=== PATIENT | female | born 1935 | race African-American/Black ===

== ENCOUNTER 2017-02-18 04:22 | Inpatient (IN) | payer MEDICARE ==
[2017-02-18] VITALS (26 sets, daily range): BP systolic 101–226; BP diastolic 48–115; PULSE 55–92; RESP 12–30; TEMP 97.7–102; O2SAT 66–100
[~2017-02-18] VITALS: Ht 165.1 cm; Wt 108.0 kg
[2017-02-18 04:40] LABS: AUTOMATED NEUTROPHIL # 10.9 TH/MM3 (1.8-7.7); BASOPHIL # 0.1 TH/MM3 (0-0.2); BASOPHIL % 0.6 % (0.0-2.0); EOSINOPHIL # 0.1 TH/MM3 (0-0.4); HEMATOCRIT 41.9 % (35.0-46.0); HEMO FLAGS DIFF FINAL; LYMPH % 13.5 % (9.0-44.0); LYMPHOCYTE # 1.8 TH/MM3 (1.0-4.8); MEAN CELL VOLUME 94.6 FL (80.0-100.0); MEAN CORPUSCULAR HEMOGLOBIN 31.5 PG (27.0-34.0); MEAN CORPUSCULAR HGB CONC 33.4 % (32.0-36.0); MONO % 4.2 % (0.0-8.0); NEUT % 80.7 % (16.0-70.0); PLATELET COUNT 167 TH/MM3 (150-450); RED BLOOD COUNT 4.43 MIL/MM3 (4.00-5.30); RED CELL DISTRIBUTION WIDTH 13.6 % (11.6-17.2); WHITE BLOOD COUNT 13.5 TH/MM3 (4.0-11.0)
[2017-02-18] MEDS ORDERED: ETOMIDATE 20 MG/10 ML VIAL ONE (04:42)
[2017-02-18] MEDS ORDERED: ONDANSETRON HCL 4 MG/2 ML VIAL IV PRN (04:45)
[2017-02-18] MEDS ORDERED: POTASSIUM CHLOR 40 MEQ PREMIX 100 ML IV PRN ×2 (04:45)
[2017-02-18] MEDS ORDERED: MISCELLANEOUS NURSING INFORMATION XX SCH (04:45)
[2017-02-18] MEDS ORDERED: MAGNESIUM OXIDE 400 MG TAB PO PRN (04:45)
[2017-02-18] MEDS ORDERED: POTASSIUM PHOSPHATE MONOBASIC 500 MG TAB PO/TUBE PRN (04:45)
[2017-02-18] MEDS ORDERED: CHLORHEXIDINE GLUCONATE 2 % 1 PACK (2 CLOTHS) TOP PRN (04:45)
[2017-02-18] MEDS ORDERED: MAGNESIUM SULFATE INJ 4 GM in SODIUM CHLORIDE 0.9% INJ 92 ML IV PRN (04:45)
[2017-02-18] MEDS ORDERED: POTASSIUM PHOSPHATE INJ 30 MMOL in SODIUM CHLOR 0.9% 250 ML INJ 250 ML IV PRN (04:45)
[2017-02-18] MEDS ORDERED: DEXTROSE 50% IN WATER 50 ML VIAL(D50) IV PUSH PRN (04:45)
[2017-02-18] MEDS ORDERED: cefTRIAXone INJ 1,000 MG in SODIUM CHLORIDE 0.9% INJ 100 ML IV ONE (04:45)
[2017-02-18] MEDS ORDERED: AZITHROMYCIN INJ 500 MG in SODIUM CHLOR 0.9% 250 ML INJ 250 ML IV ONE (04:45)
[2017-02-18] MEDS ORDERED: SODIUM PHOSPHATE INJ 30 MMOL in SODIUM CHLOR 0.9% 250 ML INJ 240 ML IV PRN (04:45)
[2017-02-18] MEDS ORDERED: ACETAMINOPHEN 325 MG TAB PO PRN (04:45)
[2017-02-18] MEDS ORDERED: RESP: ALBUTEROL 2.5 MG/IPRATROPIUM 0.5 MG NEB (PRN) INH (04:45)
[2017-02-18] MEDS ORDERED: POTASSIUM PHOSPHATE MONOBASIC 500 MG TAB PO PRN (04:45)
[2017-02-18] MEDS ORDERED: MAGNESIUM SULFATE INJ 2 GM in SODIUM CHLORIDE 0.9% INJ 96 ML IV PRN (04:45)
[2017-02-18] MEDS ORDERED: POTASSIUM CHLOR 20 MEQ PREMIX 100 ML IV PRN ×2 (04:45)
[2017-02-18 04:51] LABS: APTT (PATIENT) 26.5 SEC (24.3-30.1); PROTHROMBIN TIME - PATIENT 10.9 SEC (9.8-11.6)
[2017-02-18 04:52] LABS: BLOOD GAS BASE EXCESS -0.2 mmol/L (-2-2); BLOOD GAS HCO3 25 mmol/L (22-26); BLOOD GAS METHEMOGLOBIN 0.8 % (0-2); BLOOD GAS O2 HGB SATURATION 86 % (90-100); BLOOD GAS OXYGEN CONTENT 16.8 Vol % (12.0-20.0); BLOOD GAS PCO2 45 mmHg (38-42); BLOOD GAS PO2 58 mmHG (61-120); BLOOD GAS TOTAL HGB 13.9 G/DL (12.0-16.0); CRITICAL VALUE YES; DRAW SITE RT RADIAL; FIO2 100 %; NUMBER OF ARTERIAL PUNCTURES 1; OXYGEN DEVICE NPPV; STAT YES; TEMP CORR TO 98.6; ULNAR PULSE PRESENT; VENT SETTINGS IPAP12/EPAP5
--- NOTE | 2017-02-18 04:52 | PD ---
HPI Chief Complaint: Respiratory Distress Time Seen by Provider: 04:26 Travel History International Travel<30 days: No Contact w/Intl Traveler<30days: No Traveled to known affect area: No History of Present Illness HPI 81-year-old female with history of diabetes, brought in by ambulance emergently for respiratory distress. The patient is from [place] and is visiting here with her on their 60th anniversary. She became short of breath about 1-2 hours before calling 911. She denies history of cardiopulmonary disease. Medics noticed the patient to be in moderate respiratory distress with coarse breath sounds bilaterally. They started her on 2 L nasal cannula and transported her to the emergency department. Upon arrival to the emergency department O2 saturation was 66% on room air. Saturation did not change with 2 L nasal cannula. She was placed on 100% nonrebreather and saturation improved slightly to 73%. She was then placed on BiPAP at 100% FiO2 with improvement of sets to 91%. Stat chest x-ray was obtained and shows a large right lower lobe consolidation. Patient denies chest pain. She is notably tachypneic. I discussed intubation with her and she is amenable if need be. Shortly after the patient arrived to the emergency department, the patient's was at the patient's bedside. I made him aware of how critical it patient's status is and likely course for intubation. [facility] Social History Tobacco Use: No Allergies-Medications (Allergen,Severity, Reaction): Coded Allergies: Codeine (Verified Allergy, Unknown, 02/18/17) Reported Meds & Prescriptions Reported Meds & Active Scripts Active Active Prescriptions or Reported Medications Unobtainable Review of Systems Except as stated in HPI: all other systems reviewed are Neg Physical Exam Narrative GENERAL: Well-developed, well-nourished, overweight, severe respiratory distress , speaking 1-2 words at a time. SKIN: Focused skin assessment warm/dry. HEAD: Atraumatic. Normocephalic. EYES: Pupils equal and round. No scleral icterus. No injection or drainage. ENT: Mucous membranes pink and moist. NECK: Trachea midline. No JVD. CARDIOVASCULAR: Tachycardic, regular. RESPIRATORY: Severe respiratory distress. Accessory muscle use. Speaking 1-2 words at a time. Coarse breath sounds bilaterally with poor air movement bilaterally. GASTROINTESTINAL: Abdomen soft, non-tender, nondistended. MUSCULOSKELETAL: No obvious deformities. No clubbing. No cyanosis. Mild bilateral lower extremity edema. NEUROLOGICAL: Awake and alert. No obvious cranial nerve deficits. Motor grossly within normal limits. Normal speech. PSYCHIATRIC: Appropriate mood and affect; insight and judgment normal. Data Data Last Documented VS Vital Signs Date Time Temp Pulse Resp B/P Pulse Ox O2 Delivery O2 Flow Rate FiO2 02/18/17 05:10 92 16 226/115 96 Ventilator 100 02/18/17 05:00 15 02/18/17 04:24 100.8 Orders Complete Blood Count With Diff (02/18/17 04:26) Comprehensive Metabolic Panel (02/18/17 04:26) Prothrombin Time / Inr (Pt) (02/18/17 04:26) Act Partial Throm Time (Ptt) (02/18/17 04:26) Lactic Acid Sepsis Protocol (02/18/17 04:26) Ckmb (Isoenzyme) Profile (02/18/17 04:26) Troponin I (02/18/17 04:26) Urinalysis - C+S If Indicated (02/18/17 04:26) Blood Culture (02/18/17 04:26) Chest, Single Ap (02/18/17 04:26) Blood Glucose (02/18/17 04:26) Ecg Monitoring (02/18/17 04:26) Iv Access Insert/Monitor (02/18/17 04:26) Oximetry (02/18/17 04:26) Oxygen Administration (02/18/17 04:26) B-Type Natriuretic Peptide (02/18/17 04:26) Arterial Blood Gas (Abg) (02/18/17 04:26) Resp Bipap / Cpap Non Invas Vt (02/18/17 04:26) Etomidate Inj (Amidate Inj) (02/18/17 04:42) Ceftriaxone Inj (Rocephin Inj) (02/18/17 04:45) Azithromycin Inj (Zithromax Inj) (02/18/17 04:45) Cbc No Diff, Includes Plts (02/19/17 05:00) Cbc No Diff, Includes Plts (02/20/17 05:00) Cbc No Diff, Includes Plts (02/21/17 05:00) Cbc No Diff, Includes Plts (02/22/17 05:00) Cbc No Diff, Includes Plts (02/23/17 05:00) Cbc No Diff, Includes Plts (02/24/17 05:00) Cbc No Diff, Includes Plts (02/25/17 05:00) Basic Metabolic Panel (Bmp) (02/19/17 05:00) Basic Metabolic Panel (Bmp) (02/20/17 05:00) Basic Metabolic Panel (Bmp) (02/21/17 05:00) Basic Metabolic Panel (Bmp) (02/22/17 05:00) Basic Metabolic Panel (Bmp) (02/23/17 05:00) Basic Metabolic Panel (Bmp) (02/24/17 05:00) Basic Metabolic Panel (Bmp) (02/25/17 05:00) Restraints Non-Violent SABINE.Q3H (02/18/17 04:41) Neurological Rass Scale SABINE.Q2H (02/18/17 04:41) Propofol 1000 Mg/100 Ml Inj (Diprivan 10 (02/18/17 04:45) RASS (02/18/17 04:41) ^ Infusion (02/18/17 04:41) Magnesium Oxide (Mag-Ox) (02/18/17 04:45) Magnesium Sulfate Inj (Magnesium Sulfate (02/18/17 04:45) Magnesium Sulfate Inj (Magnesium Sulfate (02/18/17 04:45) Potassium Chlor 20 Meq Premix (Kcl 20 Me (02/18/17 04:45) Potassium Chlor 20 Meq Premix (Kcl 20 Me (02/18/17 04:45) Potassium Chlor 40 Meq Premix (Kcl 40 Me (02/18/17 04:45) Potassium Chlor 40 Meq Premix (Kcl 40 Me (02/18/17 04:45) Potassium Phosphate (K-Phos) (02/18/17 04:45) Potassium Phosphate (K-Phos) (02/18/17 04:45) Potassium Phosphate Inj (Potassium Phosp (02/18/17 04:45) Sodium Phosphate Inj (Sodium Phosphate I (02/18/17 04:45) ^ Medication Admin Instruction (02/18/17 04:41) Notify Dr: Other (02/18/17 04:41) Chlorhexidine 0.12% Liq (Peridex 0.12% L (02/18/17 08:00) Resp Ventilation- Volume (02/18/17 ) Ventilator Weaning Readiness SABINE.DAILY@0800 (02/18/17 04:41) Elevate Head Of Bed (02/18/17 04:41) Inpatient Certification (02/18/17 04:41) Bedside Glucose SABINE.Q6H (02/18/17 04:41) Blood Glucose Goal (Criteria) (02/18/17 04:41) Hypoglycemia 51 - 69 Mg/Dl (02/18/17 04:41) Hypoglycemia 50 Mg/Dl Or < (02/18/17 04:41) Notify Dr: Other (02/18/17 04:41) Dextrose 50% In Lux (Vial) Inj (D50w (Vi (02/18/17 04:45) Insulin Human Reg Supp Scale (Novolin R (02/18/17 06:00) Urinary Catheter Management SABINE.Q1H (02/18/17 04:41) Chest, Single Ap (02/19/17 06:00) Albuterol-Ipratropium Neb (Duoneb Neb) (02/18/17 10:00) Albuterol-Ipratropium Neb (Duoneb Neb) (02/18/17 04:45) Arterial Blood Gas (Abg) (02/19/17 06:00) Sputum Culture And Gram Stain (02/18/17 04:41) Specimen To Be Collected PRN (02/18/17 04:41) Code Status (02/18/17 04:41) Vital Signs (Adult) SABINE.Q1H (02/18/17 04:41) Activity Bed Rest (02/18/17 04:41) Elevate Head Of Bed (02/18/17 04:41) Neuro Checks . ORDERED (02/18/17 04:41) ^ Orogastric Tube (02/18/17 04:41) Diet Npo (02/18/17 Breakfast) Sodium Chlor 0.9% 1000 Ml Inj (Ns 1000 M (02/18/17 04:41) Acetaminophen (Tylenol) (02/18/17 04:45) Famotidine Inj (Pepcid Inj) (02/18/17 09:00) Ondansetron Inj (Zofran Inj) (02/18/17 04:45) Marble Cleaner / Telemetry SABINE.Q8H (02/18/17 04:41) Heparin Inj (Heparin Inj) (02/18/17 06:00) Scd Bilateral/Knee High SABINE.BID (02/18/17 04:41) ^ Initiate Protocol (02/18/17 04:41) Instruction (02/18/17 04:41) Misc Nursing Information (02/18/17 04:45) Chlorhexidine 2% Cloth (Chlorhexidine 2% (02/19/17 04:00) Chlorhexidine 2% Cloth (Chlorhexidine 2% (02/18/17 04:45) Mrsa Pcr Surveillance (02/18/17 04:41) Docusate Sodium-Senna (Leatha-Colace) (02/18/17 09:00) Legionella Urinary Antigen (02/18/17 04:48) Pneumococcal Urinary Antigen (02/18/17 04:48) Ceftriaxone Inj (Rocephin Inj) (02/19/17 06:00) Azithromycin Inj (Zithromax Inj) (02/19/17 05:00) Acetaminophen Supp (Tylenol Supp) (02/18/17 05:15) Admit Order (Ed Use Only) (02/18/17 05:11) Labs Laboratory Tests Test 02/18/17 02/18/17 02/18/17 04:27 04:35 05:08 White Blood Count 13.5 TH/MM3 Red Blood Count 4.43 MIL/MM3 Hemoglobin 14.0 GM/DL Hematocrit 41.9 % Mean Corpuscular Volume 94.6 FL Mean Corpuscular Hemoglobin 31.5 PG Mean Corpuscular Hemoglobin 33.4 % Concent Red Cell Distribution Width 13.6 % Platelet Count 167 TH/MM3 Mean Platelet Volume 7.3 FL Neutrophils (%) (Auto) 80.7 % Lymphocytes (%) (Auto) 13.5 % Monocytes (%) (Auto) 4.2 % Eosinophils (%) (Auto) 1.0 % Basophils (%) (Auto) 0.6 % Neutrophils # (Auto) 10.9 TH/MM3 Lymphocytes # (Auto) 1.8 TH/MM3 Monocytes # (Auto) 0.6 TH/MM3 Eosinophils # (Auto) 0.1 TH/MM3 Basophils # (Auto) 0.1 TH/MM3 CBC Comment DIFF FINAL Differential Comment Prothrombin Time 10.9 SEC Prothromb Time International 1.0 RATIO Ratio Activated Partial 26.5 SEC Thromboplast Time Sodium Level 141 MEQ/L Potassium Level 3.5 MEQ/L Chloride Level 105 MEQ/L Carbon Dioxide Level 26.3 MEQ/L Anion Gap 10 MEQ/L Blood Urea Nitrogen 23 MG/DL Creatinine 1.68 MG/DL Estimat Glomerular Filtration 35 ML/MIN Rate Random Glucose 132 MG/DL Lactic Acid Level 1.5 mmol/L Calcium Level 8.7 MG/DL Total Bilirubin 1.0 MG/DL Aspartate Amino Transf 19 U/L (AST/SGOT) Alanine Aminotransferase 13 U/L (ALT/SGPT) Alkaline Phosphatase 68 U/L Total Creatine Kinase 94 U/L Troponin I LESS THAN 0.02 NG/ML B-Type Natriuretic Peptide 109 PG/ML Total Protein 7.6 GM/DL Albumin 3.5 GM/DL Blood Gas Puncture Site RT RADIAL Blood Gas Patient Temperature 98.6 Blood Gas HCO3 25 mmol/L Blood Gas Base Excess -0.2 mmol/L Blood Gas Oxygen Saturation 86 % Arterial Blood pH 7.35 Arterial Blood Partial 45 mmHg Pressure CO2 Arterial Blood Partial 58 mmHG Pressure O2 Arterial Blood Oxygen Content 16.8 Vol % Arterial Blood 1.0 % Carboxyhemoglobin Arterial Blood Methemoglobin 0.8 % Blood Gas Hemoglobin 13.9 G/DL Oxygen Delivery Device NPPV Blood Gas Ventilator Setting IPAP12/[id number] Blood Gas Inspired Oxygen 100 % Urine Color YELLOW Urine Turbidity CLEAR Urine pH 6.0 Urine Specific [place] 1.013 Urine Protein TRACE mg/dL Urine Glucose (UA) NEG mg/dL Urine Ketones NEG mg/dL Urine Occult Blood NEG Urine Nitrite NEG Urine Bilirubin NEG Urine Urobilinogen LESS THAN 2.0 MG/DL Urine Leukocyte Esterase NEG Urine RBC 5 /hpf Urine WBC LESS THAN 1 /hpf Urine Squamous Epithelial 1 /hpf Cells Microscopic Urinalysis Comment CATH-CULT NOT IND MDM Medical Decision Making Medical Screen Exam Complete: Yes Emergency Medical Condition: Yes Differential Diagnosis Pneumonia, ACS, pulmonary edema, pneumothorax, PE, Narrative Course See history of present illness. Shortly after the patient arrived to the emergency department I contacted lamp shades supervisor Dr. Joe who presented to the bedside to assist with initial management of the patient. Chest x-ray was performed shortly after the patient arrived to the emergency department and shows a large consolidation of the right lower lobe lesion with air bronchograms. Patient was written for IV azithromycin and IV Rocephin. Of the patient's O2 saturation improved with BiPAP, patient remained tachypneic with increased work of breathing. She was intubated for impending respiratory failure. Patient will be admitted to the ICU. Patient's at the bedside after intubation was performed. Critical Care Narrative Aggregate critical care time was 40 minutes. Time to perform other separately billable procedures was not included in the critical care time. My time did not include minutes spent treating any other patients simultaneously or on activities that did not directly contribute to the patient's treatment. The services I provided to this patient were to treat and/or prevent clinically significant deterioration that could result in: , permanent disability, septic shock I provided critical care services requiring my management, as noted below: Chart data review, documentation time, medication orders and management, vital sign assessments/reviewing monitor data, ordering and reviewing lab tests, ordering and interpreting/reviewing x-rays and diagnostic studies, care of the patient and discussion of the patient with the admitting physicians. Procedures Procedure Narrative Emergent intubation: The patient was put in optimal position for the procedure. Rapid sequence intubation was initiated by me using 20 milligrams of etomidate IV and 50 milligrams of rocuronium IV. The patient was intubated with a 8.0 Arabic cuffed endotracheal tube. Tube placement was confirmed by visualization of the tube and balloon passing through the cords, capnometry and subsequent chest x-ray. Breath sounds were equal and well aerated bilaterally postintubation. No breath sounds over stomach. Patient tolerated procedure well. Diagnosis Primary Impression: Sepsis Qualified Code: A41.9 - Sepsis, due to unspecified organism Additional Impressions: Pneumonia Qualified Code: J18.1 - Pneumonia of right lower lobe due to infectious organism Acute respiratory failure Qualified Code: J96.01 - Acute respiratory failure with hypoxia Admitting Information Admitting Physician Requests: Admit Scripts Unable to Obtain Active Prescriptions or Reported Meds Isaias Roque MD Feb 18, 2017 04:52
--- NOTE | 2017-02-18 04:56 | RADRPT ---
EXAM DATE/TIME: 02/18/2017 04:30 [facility] COMPARISON: No previous studies available for comparison. INDICATIONS : Shortness of breath MEDICAL HISTORY : None. SURGICAL HISTORY : None. ENCOUNTER: Initial ACUITY: 1 day PAIN SCORE: Non-responsive. LOCATION: Bilateral chest FINDINGS: There is consolidation in the right lower lobe and right upper lobe. Left lower lobe consolidation is seen. Cardiomegaly. No effusions. Osseous structures are intact. CONCLUSION: Bilateral consolidation right greater than left. Koko Ortiz MD on February 18, 2017 at 4:54 Board Certified Radiologist. This report was verified electronically.
--- NOTE | 2017-02-18 05:02 | HHI.HP ---
[facility] Service Critical Care Medicine Primary Care Physician Non-Staff Admission Diagnosis Diagnosis: Chief Complaint: shortness of breath Travel History International Travel<30 Days: No Contact w/Intl Traveler <30 Da: No Traveled to Known Affected Are: No History of Present Illness This is an 81yF with history of diabetes who is here on vacation when she experienced worsening shortness of breath and fever over last few days. she was initially with spo2 60s% on room air. She was placed on BiPAP. She has a leukocytosis and a dense RLL consolidation on CXR. She continued to decline requiring intubation and mechanical ventilation. no further history is obtainable from the patient due to her clinical condition. Review of Systems ROS Limitations: Clinical Condition, Intubated Past Family Social History Allergies: Coded Allergies: Codeine (Verified Allergy, Unknown, 02/18/17) Past Medical History Diabetes Past Surgical History unable to obtain secondary to the clinical condition of the patient Reported Medications unable to obtain secondary to the clinical condition of the patient Active Ordered Medications See MAR Family History unable to obtain secondary to the clinical condition of the patient Social History unable to obtain secondary to the clinical condition of the patient Physical Exam Vital Signs Vital Signs Date Time Temp Pulse Resp B/P Pulse Ox O2 Delivery O2 Flow Rate FiO2 02/18/17 04:32 BiPAP 02/18/17 04:28 28 73 Non-Rebreather 02/18/17 04:24 100.8 82 28 202/105 66 Physical Exam GENERAL: Elderly female in severe respiratory distress HEENT: Normocephalic. Atraumatic. Pupils equal, round, reactive, conjugate. Mucous membranes are dry NECK: Trachea is midline. There is no JVD. BiPAP in place CHEST: Labored. Tachypneic. On BiPAP 100% FiO2, SPO2 89% CARDIOVASCULAR: Tachycardic rate, regular rhythm. Sinus by telemetry ABDOMEN: Soft, nontender, nondistended. No guarding. MUSCULOSKELETAL: Pulses 2+. No peripheral edema. NEUROLOGICAL: RASS +1. In distress. Follows commands. Laboratory Laboratory Tests Test 02/18/17 04:27 White Blood Count 13.5 Red Blood Count 4.43 Hemoglobin 14.0 Hematocrit 41.9 Mean Corpuscular Volume 94.6 Mean Corpuscular Hemoglobin 31.5 Mean Corpuscular Hemoglobin 33.4 Concent Red Cell Distribution Width 13.6 Platelet Count 167 Mean Platelet Volume 7.3 Neutrophils (%) (Auto) 80.7 Lymphocytes (%) (Auto) 13.5 Monocytes (%) (Auto) 4.2 Eosinophils (%) (Auto) 1.0 Basophils (%) (Auto) 0.6 Neutrophils # (Auto) 10.9 Lymphocytes # (Auto) 1.8 Monocytes # (Auto) 0.6 Eosinophils # (Auto) 0.1 Basophils # (Auto) 0.1 CBC Comment DIFF FINAL Differential Comment Date/Time Procedure Status Source Growth 02/18/17 04:27 Aerobic Blood Culture Received Blood Peripheral Pending 02/18/17 04:27 Anaerobic Blood Culture Received Blood Peripheral Pending Result Diagram: 02/18/17 0427 Imaging CXR- 02/18: to my preliminary read, very dense RLL consolidation, possible LLL consolidation as well. Assessment and Plan Assessment and Plan Assessment: 81yF with very severe community acquired pneumonia with resultant acute hypoxic respiratory failure. very critically ill. Plan: Acute hypoxic respiratory failure -- s/p intubation -- wean fio2 for spo2 > 90% -- nebs -- hob at 30 degrees -- vent bundle Severe Community Acquired pneumonia -- No history concerning for healthcare association or pseudomonas risk factors. no chronic lung disease -- urine legionella, pneumonococcal Ag -- Rocephin and Azithro -- augustine culture Sepsis Leukocytosis -- mivf NS @ 84 cc/hr Diabetes -- SSI, q6h, med scale NPO SCDs SQH Admit to the ICU. This patient remains critically ill with one or more organ systems which are or may become a threat to life. I have spent in excess of 32 minutes discontinuously in the care and management of this patient. This time is exclusive of procedures, and includes, but is not limited to, evaluation of the patient, review of the medical record, discussions with family, consultants, nursing staff, or respiratory therapy, and documentation in the medical record. Code Status Full Code Alvaro Joe MD Feb 18, 2017 05:02
[2017-02-18] MEDS ORDERED: ACETAMINOPHEN 650 MG SUPP RECTAL ONE (05:15)
[2017-02-18] MEDS: PROPOFOL 1000 MG/100 ML INJ 100 ML IV SCH ×4 (05:21→21:16)
[2017-02-18 05:24] LABS: ALT (GPT) 13 U/L (10-53); ANION GAP 10 MEQ/L (5-15); AST (GOT) 19 U/L (15-37); BICARBONATE 26.3 MEQ/L (21.0-32.0); BLOOD UREA NITROGEN 23 MG/DL (7-18); CHLORIDE 105 MEQ/L (98-107); GLOMERULAR FILTRATION RATE 35 ML/MIN (>89); POTASSIUM 3.5 MEQ/L (3.5-5.1); SODIUM (NA) 141 MEQ/L (136-145)
[2017-02-18 05:25] LABS: BLOOD, URINE NEG (NEG); GLUCOSE,URINE NEG (NEG); KETONE, URINE NEG (NEG); NITRITE,URINE NEG (NEG); SQUAMOUS EPITHELIAL CELL URINE 1 /hpf (0-5); URINE COLOR YELLOW (YELLW/STRAW)
[2017-02-18 05:26] LABS: COMMENT (UR) CATH-CULT NOT IND; CULTURE IF INDICATED CATH CULTURE NOT IND
[2017-02-18 05:27] LABS: ALKALINE PHOSPHATASE 68 U/L (45-117)
[2017-02-18 05:40] LABS: CREATINE KINASE 94 U/L (26-192)
[2017-02-18] MEDS: INSULIN NovoLIN REGULAR SUPPLEMENTAL SCALE SQ SCH ×3 (05:46→16:48)
[2017-02-18 06:04] LABS: BLOOD GAS BASE EXCESS -0.9 mmol/L (-2-2); BLOOD GAS CARBOXYHEMOGLOBIN 0.9 % (0-4); BLOOD GAS HCO3 24 mmol/L (22-26); BLOOD GAS METHEMOGLOBIN 0.7 % (0-2); BLOOD GAS O2 HGB SATURATION 97 % (90-100); BLOOD GAS OXYGEN CONTENT 18.2 Vol % (12.0-20.0); BLOOD GAS PCO2 46 mmHg (38-42); BLOOD GAS PO2 137 mmHG (61-120); BLOOD GAS TOTAL HGB 13.2 G/DL (12.0-16.0); CRITICAL VALUE NO; FIO2 100 %; OXYGEN DEVICE VENTILATOR; TEMP CORR TO 98.6; VENT SETTINGS VAC15/500/PEEP5
[2017-02-18 06:05] LABS: DRAW SITE LT RADIAL; NUMBER OF ARTERIAL PUNCTURES 1; STAT YES; ULNAR PULSE PRESENT
[2017-02-18] MEDS: SODIUM CHLOR 0.9% 1000 ML INJ 1,000 ML IV SCH ×2 (06:16→16:46)
--- NOTE | 2017-02-18 06:18 | RADRPT ---
EXAM DATE/TIME: 02/18/2017 05:53 [facility] COMPARISON: CHEST SINGLE AP, February 18, 2017, 4:30. INDICATIONS : Post procedure. MEDICAL HISTORY : None. SURGICAL HISTORY : None. ENCOUNTER: Initial ACUITY: 1 day PAIN SCORE: Non-responsive. LOCATION: Bilateral chest FINDINGS: Endotracheal tube is present with distal tip terminating 3.4 cm above the lina. Enteric tube course s beneath the diaphragm. There is dense consolidative opacity in both lower lobes and slight improved aeration right upper lobe. CONCLUSION: Endotracheal tube as above. Koko Ortiz MD on February 18, 2017 at 6:16 Board Certified Radiologist. This report was verified electronically.
[2017-02-18] MEDS: HEPARIN SODIUM - SQ 10,000 UNITS/ML VIAL SQ SCH ×3 (06:20→21:07)
[2017-02-18] MEDS ORDERED: ETOMIDATE 20 MG/10 ML VIAL IV PUSH ONE (06:45)
[2017-02-18] MEDS ORDERED: ROCURONIUM INJ 50 MG/5 ML VIAL IV ONE (06:45)
[2017-02-18] MEDS: CHLORHEXIDINE 0.12% (ORAL KIT) 15 ML CUP MT SCH ×2 (08:00→20:00)
[2017-02-18] MEDS: DOCUSATE SODIUM 50 MG/SENNA 8.6 MG TAB PO SCH ×2 (09:00→21:07)
[2017-02-18] MEDS: FAMOTIDINE 20 MG/2 ML VIAL IV PUSH SCH ×2 (09:19→21:07)
[2017-02-18] MEDS: RESP: ALBUTEROL 2.5 MG/IPRATROPIUM 0.5 MG NEB (SCH) INH ×3 (10:45→20:02)
--- NOTE | 2017-02-18 11:36 | EKG ---
Date Performed: 02/18/2017 Time Performed: 04:29:11 PTAGE: 81 years EKG: Normal Sinus rhythm Severe baseline artifact makes this substandard for interpretation, and difficult to provide interpr etation of the ST segments with no prior tracing. NO PREVIOUS TRACING DOCTOR: Kelechi Dang Interpretating Date/Time 02/18/2017 11:35:05
[2017-02-19] VITALS (17 sets, daily range): BP systolic 107–133; BP diastolic 56–63; PULSE 54–81; RESP 10–28; TEMP 96.8–99.1; O2SAT 96–100
[2017-02-19] MEDS: PROPOFOL 1000 MG/100 ML INJ 100 ML IV SCH ×3 (01:02→09:30)
[2017-02-19] MEDS: RESP: ALBUTEROL 2.5 MG/IPRATROPIUM 0.5 MG NEB (SCH) INH ×4 (02:20→22:29)
[2017-02-19] MEDS: CHLORHEXIDINE GLUCONATE 2 % 1 PACK (2 CLOTHS) TOP SCH (03:55)
[2017-02-19] MEDS: SODIUM CHLOR 0.9% 1000 ML INJ 1,000 ML IV SCH (04:39)
[2017-02-19] MEDS: cefTRIAXone INJ 2,000 MG in SODIUM CHLORIDE 0.9% INJ 100 ML IV SCH (04:41)
[2017-02-19] MEDS: HEPARIN SODIUM - SQ 10,000 UNITS/ML VIAL SQ SCH ×3 (04:41→20:37)
[2017-02-19] MEDS: AZITHROMYCIN INJ 500 MG in SODIUM CHLOR 0.9% 250 ML INJ 250 ML IV SCH (04:41)
[2017-02-19] MEDS: INSULIN NovoLIN REGULAR SUPPLEMENTAL SCALE SQ SCH ×4 (05:23→17:20)
--- NOTE | 2017-02-19 05:23 | RADRPT ---
EXAM DATE/TIME: 02/19/2017 04:17 [facility] COMPARISON: CHEST SINGLE AP, February 18, 2017, 5:53. INDICATIONS : Shortness of breath. MEDICAL HISTORY : None. SURGICAL HISTORY : None. ENCOUNTER: Subsequent ACUITY: 2 days PAIN SCORE: Non-responsive. LOCATION: chest FINDINGS: Persistent consolidation seen in right mid and lower lung, not significantly changed. No large effusi on seen. No pneumothorax. Heart size stable, upper limits of normal. Endotracheal tube tip is approximately 4 cm above the lina. There is a nasogastric tube coursing in to the stomach. CONCLUSION: No significant change. Persistent consolidation on the right. Gio Iniguez MD on February 19, 2017 at 5:21 Board Certified Radiologist. This report was verified electronically.
[2017-02-19 05:24] LABS: HEMATOCRIT 35.1 % (35.0-46.0); MEAN CELL VOLUME 93.9 FL (80.0-100.0); MEAN CORPUSCULAR HEMOGLOBIN 31.7 PG (27.0-34.0); MEAN CORPUSCULAR HGB CONC 33.8 % (32.0-36.0); PLATELET COUNT 134 TH/MM3 (150-450); RED BLOOD COUNT 3.74 MIL/MM3 (4.00-5.30); RED CELL DISTRIBUTION WIDTH 13.9 % (11.6-17.2); REVIEW FLAG FINAL; WHITE BLOOD COUNT 16.1 TH/MM3 (4.0-11.0)
[2017-02-19 05:33] LABS: APTT (PATIENT) 36.9 SEC (24.3-30.1); PROTHROMBIN TIME - PATIENT 11.2 SEC (9.8-11.6)
[2017-02-19 05:57] LABS: BICARBONATE 24.9 MEQ/L (21.0-32.0); INDIRECT BILIRUBIN 0.7 MG/DL (0.0-0.8); MAGNESIUM 1.9 MG/DL (1.5-2.5); POTASSIUM 3.7 MEQ/L (3.5-5.1); TOTAL BILIRUBIN ADULT 0.9 MG/DL (0.2-1.0)
[2017-02-19 05:59] LABS: BLOOD GAS BASE EXCESS -1.3 mmol/L (-2-2); BLOOD GAS CARBOXYHEMOGLOBIN 1.3 % (0-4); BLOOD GAS HCO3 22 mmol/L (22-26); BLOOD GAS METHEMOGLOBIN 1.2 % (0-2); BLOOD GAS O2 HGB SATURATION 96 % (90-100); BLOOD GAS OXYGEN CONTENT 15.7 Vol % (12.0-20.0); BLOOD GAS PCO2 30 mmHg (38-42); BLOOD GAS PO2 106 mmHg (61-120); BLOOD GAS TOTAL HGB 11.6 G/DL (12.0-16.0); CRITICAL VALUE NO; DRAW SITE RT RADIAL; FIO2 40 %; NUMBER OF ARTERIAL PUNCTURES 1; OXYGEN DEVICE VENTILATOR; STAT NO; TEMP CORR TO 98.6; ULNAR PULSE PRESENT; VENT SETTINGS PRVC/AC
[2017-02-19] MEDS: DOCUSATE SODIUM 50 MG/SENNA 8.6 MG TAB PO SCH ×2 (09:31→20:37)
[2017-02-19] MEDS: FAMOTIDINE 20 MG/2 ML VIAL IV PUSH SCH ×2 (09:31→20:37)
[2017-02-19] MEDS: CHLORHEXIDINE 0.12% (ORAL KIT) 15 ML CUP MT SCH ×2 (09:31→20:00)
--- NOTE | 2017-02-19 10:44 | HHI.CCPN ---
Subjective Remarks/Hospital Course This is an 81yF with history of diabetes who is here on vacation when she experienced worsening shortness of breath and fever over last few days. she was initially with spo2 60s% on room air. She was placed on BiPAP. She has a leukocytosis and a dense RLL consolidation on CXR. She continued to decline requiring intubation and mechanical ventilation. no further history is obtainable from the patient due to her clinical condition. SUBJ 02/19: Remains intubated sedated. Wakes up easily follows commands. Chest x-ray shows persistent right lower infiltrate, improved on my review. Fio2 40%. There was a slight uptrending of lactic acid 2.6 am. Will repeat in afternoon Objective Vital Signs Date Time Temp Pulse Resp B/P Pulse Ox O2 Delivery O2 Flow Rate FiO2 02/19/17 08:28 35 02/19/17 08:06 100 02/19/17 06:00 60 02/19/17 04:00 96.8 15 107/59 02/18/17 09:20 Ventilator 02/18/17 05:00 15 Intake and Output 02/18/17 02/18/17 02/19/17 08:00 16:00 00:00 Intake Total 261 ml Output Total 650 ml Balance -389 ml Result Diagram: 02/19/17 0503 02/19/17 0503 Other Results Microbiology Date/Time Procedure Status Source Growth 02/18/17 05:08 Legionella Antigen - Final Complete Urine Catheterized Urine PRESUMPTIVE NEGATIVE FOR LEGIONELLA P... 02/18/17 05:08 Streptococcus pneumoniae Antigen (M - Final Complete Urine Catheterized Urine PRESUMPTIVE NEGATIVE FOR STREPTOCOCCU... Laboratory Tests Test 02/19/17 05:42 Blood Gas Puncture Site RT RADIAL Blood Gas Patient Temperature 98.6 Blood Gas HCO3 22 mmol/L (22-26) Blood Gas Base Excess -1.3 mmol/L (-2-2) Blood Gas Oxygen Saturation 96 % (90-100) Arterial Blood pH 7.48 (7.380-7.420) Arterial Blood Partial 30 mmHg (38-42) Pressure CO2 Arterial Blood Partial 106 mmHg Pressure O2 (61-120) Arterial Blood Oxygen Content 15.7 Vol % (12.0-20.0) Arterial Blood 1.3 % (0-4) Carboxyhemoglobin Arterial Blood Methemoglobin 1.2 % (0-2) Blood Gas Hemoglobin 11.6 G/DL (12.0-16.0) Oxygen Delivery Device VENTILATOR Blood Gas Ventilator Setting PRVC/AC Blood Gas Inspired Oxygen 40 % Imaging CXR- 02/18: to my preliminary read, very dense RLL consolidation, possible LLL consolidation as well. Objective Remarks GENERAL: Elderly female intubated sedated HEENT: Normocephalic. Atraumatic. Pupils equal, round, reactive, conjugate. Orotracheally intubated NECK: Trachea is midline. There is no JVD. CHEST: Diminished bilateral bases. No wheezes or crackles CARDIOVASCULAR: Regular rate, regular rhythm. Sinus by telemetry ABDOMEN: Soft, nontender, nondistended. No guarding. MUSCULOSKELETAL: Pulses 2+. No peripheral edema. NEUROLOGICAL: Alert awake oriented no focal deficits. A/P Assessment and Plan Assessment: 81yF with very severe community acquired pneumonia with resultant acute hypoxic respiratory failure. very critically ill. Plan: Acute hypoxic respiratory failure -- s/p intubation. Start SBT -- wean fio2 for spo2 > 90% -- nebs -- hob at 30 degrees -- vent bundle Severe Community Acquired pneumonia -- No history concerning for healthcare association or pseudomonas risk factors. no chronic lung disease -- urine legionella, pneumonococcal Ag neg -- Rocephin and Azithro -- F/U augustine culture Sepsis Leukocytosis -- mivf NS @ 84 cc/hr-DC today and give 20 mg IV Lasix to facilitate vent weaning Diabetes -- SSI, q6h, med scale NPO SCDs SQH Continue ICU. Patient remains critically ill but stable. FiO2 requirement has come down but patient has ongoing sepsis as indicated by increasing white count and increasing lactic acid. This patient remains critically ill with one or more organ systems which are or may become a threat to life. I have spent in excess of 32 minutes discontinuously in the care and management of this patient. This time is exclusive of procedures, and includes, but is not limited to, evaluation of the patient, review of the medical record, discussions with family, consultants, nursing staff, or respiratory therapy, and documentation in the medical record. Jermaine Powers MD Feb 19, 2017 10:44
[2017-02-19] MEDS ORDERED: FUROSEMIDE 20 MG/2 ML VIAL IV PUSH ONE (10:45)
[2017-02-19] MEDS ORDERED: POTASSIUM CHLORIDE 25 MEQ EFFERVESCENT TAB PO ONE (10:45)
[2017-02-20] VITALS (18 sets, daily range): BP systolic 79–142; BP diastolic 40–60; PULSE 55–92; RESP 12–42; TEMP 97.2–99.4; O2SAT 92–100
[2017-02-20] MEDS: CHLORHEXIDINE GLUCONATE 2 % 1 PACK (2 CLOTHS) TOP SCH (02:22)
[2017-02-20] MEDS: AZITHROMYCIN INJ 500 MG in SODIUM CHLOR 0.9% 250 ML INJ 250 ML IV SCH (04:37)
[2017-02-20] MEDS: cefTRIAXone INJ 2,000 MG in SODIUM CHLORIDE 0.9% INJ 100 ML IV SCH (04:37)
[2017-02-20] MEDS: HEPARIN SODIUM - SQ 10,000 UNITS/ML VIAL SQ SCH ×3 (04:37→20:32)
[2017-02-20] MEDS: RESP: ALBUTEROL 2.5 MG/IPRATROPIUM 0.5 MG NEB (SCH) INH ×4 (04:45→23:01)
[2017-02-20] MEDS: INSULIN NovoLIN REGULAR SUPPLEMENTAL SCALE SQ SCH ×5 (06:00→23:48)
[2017-02-20 06:12] LABS: HEMATOCRIT 32.1 % (35.0-46.0); MEAN CELL VOLUME 94.9 FL (80.0-100.0); MEAN CORPUSCULAR HEMOGLOBIN 31.8 PG (27.0-34.0); MEAN CORPUSCULAR HGB CONC 33.5 % (32.0-36.0); PLATELET COUNT 135 TH/MM3 (150-450); RED BLOOD COUNT 3.39 MIL/MM3 (4.00-5.30); RED CELL DISTRIBUTION WIDTH 13.9 % (11.6-17.2); REVIEW FLAG FINAL; WHITE BLOOD COUNT 13.1 TH/MM3 (4.0-11.0)
[2017-02-20 06:36] LABS: BICARBONATE 25.9 MEQ/L (21.0-32.0); POTASSIUM 3.5 MEQ/L (3.5-5.1)
[2017-02-20] MEDS: CHLORHEXIDINE 0.12% (ORAL KIT) 15 ML CUP MT SCH ×2 (08:00→20:00)
[2017-02-20] MEDS: DOCUSATE SODIUM 50 MG/SENNA 8.6 MG TAB PO SCH ×2 (09:00→20:32)
--- NOTE | 2017-02-20 09:50 | PD.TRANSFR ---
Transfer Summary Admission Date Feb 18, 2017 at 05:13 Admitting Diagnosis Diagnoses: (1) Acute respiratory failure Diagnosis: Principal (2) Pneumonia Diagnosis: Principal (3) Sepsis Diagnosis: Principal (4) Acute kidney injury Diagnosis: Principal Transfer Summary/Subjective This is an 81yF with history of diabetes who is here on vacation when she experienced worsening shortness of breath and fever over last few days. she was initially with spo2 60s% on room air. She was placed on BiPAP. She has a leukocytosis and a dense RLL consolidation on CXR. She continued to decline requiring intubation and mechanical ventilation. no further history is obtainable from the patient due to her clinical condition. SUBJ 02/19: Remains intubated sedated. Wakes up easily follows commands. Chest x-ray shows persistent right lower infiltrate, improved on my review. Fio2 40%. There was a slight uptrending of lactic acid 2.6 am. Will repeat in afternoon 02/20: Extubated yesterday tolerating well breathing comfortably. Creatinine is improving white count trending down. PT ordered Objective Vital Signs Date Time Temp Pulse Resp B/P Pulse Ox O2 Delivery O2 Flow Rate FiO2 02/20/17 06:00 66 02/20/17 04:00 97.2 27 96 02/20/17 00:00 105/51 02/19/17 22:29 Nasal Cannula 1.00 02/19/17 08:28 35 Intake and Output 02/19/17 02/19/17 02/20/17 08:00 16:00 00:00 Intake Total 1235 ml 136 ml 360 ml Output Total 800 ml 1600 ml 750 ml Balance 435 ml -1464 ml -390 ml Result Diagram: 02/20/17 0402 02/20/17 0402 Other Results Microbiology Date/Time Procedure Status Source Growth 02/18/17 05:08 Legionella Antigen - Final Complete Urine Catheterized Urine PRESUMPTIVE NEGATIVE FOR LEGIONELLA P... 02/18/17 05:08 Streptococcus pneumoniae Antigen (M - Final Complete Urine Catheterized Urine PRESUMPTIVE NEGATIVE FOR STREPTOCOCCU... Imaging CXR- 02/18: to my preliminary read, very dense RLL consolidation, possible LLL consolidation as well. Objective Remarks GENERAL: Elderly female lying in bed no distress HEENT: Normocephalic. Atraumatic. Pupils equal, round, reactive, conjugate. Orotracheally intubated NECK: Trachea is midline. There is no JVD. CHEST: Diminished bilateral bases. No wheezes or crackles CARDIOVASCULAR: Regular rate, regular rhythm. Sinus by telemetry ABDOMEN: Soft, nontender, nondistended. No guarding. MUSCULOSKELETAL: Pulses 2+. No peripheral edema. NEUROLOGICAL: Alert awake oriented no focal deficits. A/P Assessment and Plan Assessment: 81yF with severe community acquired pneumonia with resultant acute hypoxic respiratory failure. Plan: Acute hypoxic respiratory failure resolved -- Extubated 02/19 -- nebs -- hob at 30 degrees -- vent bundle Severe Community Acquired pneumonia -- No history concerning for healthcare association or pseudomonas risk factors. no chronic lung disease -- urine legionella, pneumonococcal Ag neg -- Continue Rocephin and Azithro -- F/U augustine culture Sepsis Leukocytosis -- mivf Dcd. Diabetes -- SSI, q6h, med scale 1999 ADA diet SCDs SQH Level 2 Consult hospitalist to assume care in a.m. 02/21/17. Transfer to [facility] with telemetry Jermaine Powers MD Feb 20, 2017 09:49
--- NOTE | 2017-02-20 10:25 | RADRPT ---
EXAM DATE/TIME: 02/20/2017 09:46 [facility] COMPARISON: CHEST SINGLE AP, February 19, 2017, 4:17. INDICATIONS : Shortness of breath. Interval extubation. Followup of right lung consolidation.. MEDICAL HISTORY : Hypertension. Diabetes. SURGICAL HISTORY : None. ENCOUNTER: Subsequent ACUITY: 3 days PAIN SCORE: 0/10 LOCATION: Bilateral chest FINDINGS: A single AP erect portable view of the chest was obtained and again demonstrates hazy opacity in the right perihilar region right lung base. This appears mildly improved. Left lung is clear. The heart s ize is at the upper limits of normal. There is no distinct effusion. Multiple overlying electrocardio gram leads are present. The bony thorax is intact. The previously noted endotracheal tube and nasogas tric tube have been removed. CONCLUSION: 1. Mild improvement in right perihilar and right basilar opacity. 2. Status post extubation and removal of nasogastric tube. Bhavin Seay MD on February 20, 2017 at 10:21 Board Certified Radiologist. This report was verified electronically.
[2017-02-21] VITALS (10 sets, daily range): BP systolic 113–141; BP diastolic 56–65; PULSE 55–86; RESP 20; TEMP 97.9–98.9; O2SAT 93–97
[2017-02-21] MEDS: RESP: ALBUTEROL 2.5 MG/IPRATROPIUM 0.5 MG NEB (SCH) INH ×4 (03:34→20:24)
[2017-02-21] MEDS: CHLORHEXIDINE GLUCONATE 2 % 1 PACK (2 CLOTHS) TOP SCH (03:45)
[2017-02-21] MEDS: AZITHROMYCIN INJ 500 MG in SODIUM CHLOR 0.9% 250 ML INJ 250 ML IV SCH (05:17)
[2017-02-21] MEDS: HEPARIN SODIUM - SQ 10,000 UNITS/ML VIAL SQ SCH ×3 (05:19→23:13)
[2017-02-21] MEDS: cefTRIAXone INJ 2,000 MG in SODIUM CHLORIDE 0.9% INJ 100 ML IV SCH (05:19)
[2017-02-21] MEDS: INSULIN NovoLIN REGULAR SUPPLEMENTAL SCALE SQ SCH ×4 (05:27→23:13)
--- NOTE | 2017-02-21 06:06 | RADRPT ---
EXAM DATE/TIME: 02/21/2017 05:04 [facility] COMPARISON: CHEST SINGLE AP, February 20, 2017, 9:46. INDICATIONS : Shortness of breath. MEDICAL HISTORY : Hypertension. Diabetes SURGICAL HISTORY : None. ENCOUNTER: Subsequent ACUITY: 4 - 6 days PAIN SCORE: 0/10 LOCATION: Bilateral chest FINDINGS: A single view of the chest demonstrates slight improvement of right basilar patchy densities. Heart m ildly enlarged. The cardiomediastinal contours are unremarkable. Osseous structures are intact. CONCLUSION: 1. Slightly improved right basilar infiltrates. Jeb Lang MD on February 21, 2017 at 6:04 Board Certified Radiologist. This report was verified electronically.
[2017-02-21] MEDS: DOCUSATE SODIUM 50 MG/SENNA 8.6 MG TAB PO SCH ×2 (08:20→21:00)
[2017-02-21] MEDS: CHLORHEXIDINE 0.12% (ORAL KIT) 15 ML CUP MT SCH ×2 (08:20→20:00)
--- NOTE | 2017-02-21 12:38 | HHI.PR ---
Subjective Remarks legal document specialist notes: This is an 81yF with history of diabetes who is here on vacation when she experienced worsening shortness of breath and fever over last few days. she was initially with spo2 60s% on room air. She was placed on BiPAP. She has a leukocytosis and a dense RLL consolidation on CXR. She continued to decline requiring intubation and mechanical ventilation. no further history is obtainable from the patient due to her clinical condition. SUBJ 02/19: Remains intubated sedated. Wakes up easily follows commands. Chest x-ray shows persistent right lower infiltrate, improved on my review. Fio2 40%. There was a slight uptrending of lactic acid 2.6 am. Will repeat in afternoon 02/20: Extubated yesterday tolerating well breathing comfortably. Creatinine is improving white count trending down. PT ordered Hospitalist Notes: 02/21: Seen in her bedroom, stable will get the Physical therapy evaluation and walking test for tomorrow, the patient states she has to continue taking her Eliquis twice a day for life due to valve repair, will continue Eliquis as recommended 2.5 mg for persons 80 years of age or older, also will get Echocardiogram, she wants to go home, and follow with PCP no nausea, vomit or diarrhea Objective Vital Signs Date Time Temp Pulse Resp B/P Pulse Ox O2 Delivery O2 Flow Rate FiO2 02/21/17 10:23 57 02/21/17 08:33 97 Nasal Cannula 2.00 02/21/17 08:00 98.2 75 20 113/56 93 02/21/17 04:00 98.3 61 20 141/64 97 02/21/17 00:00 98.7 61 20 119/57 96 02/20/17 23:06 96 Nasal Cannula 2.00 02/20/17 20:00 97.8 60 20 142/57 94 02/20/17 20:00 66 02/20/17 18:22 55 02/20/17 16:00 99.0 65 18 120/58 98 02/20/17 15:46 92 Nasal Cannula 2.00 02/20/17 13:00 99.0 71 18 132/60 97 I/O 8/12/17 8/12/17 8/12/17 8/13/17 8/13/17 8/13/17 06:59 14:59 22:59 06:59 14:59 22:59 Intake Total 453 ml 240 ml 120 ml 450 ml Output Total 1000 ml 500 ml Balance -547 ml 240 ml -380 ml 450 ml Intake Oral 120 ml 240 ml 120 ml 100 ml IV Total 333 ml 0 ml 350 ml Output Urine Total 1000 ml 500 ml # Voids 1 # Bowel Movements 2 1 0 Result Diagram: 02/20/17 0402 02/20/17 0402 Imaging Last Impressions Chest X-Ray 02/21/17 0600 Signed Impressions: Service Date/Time: Tuesday, February 21, 2017 05:04 - CONCLUSION: 1. Slightly improved right basilar infiltrates. Jeb Lang MD Procedures None Other Results Laboratory Tests Test 02/18/17 02/18/17 02/19/17 02/19/17 04:27 05:08 05:03 05:42 Neutrophils (%) (Auto) 80.7 % Lymphocytes (%) (Auto) 13.5 % Monocytes (%) (Auto) 4.2 % Eosinophils (%) (Auto) 1.0 % Basophils (%) (Auto) 0.6 % Neutrophils # (Auto) 10.9 TH/MM3 Lymphocytes # (Auto) 1.8 TH/MM3 Monocytes # (Auto) 0.6 TH/MM3 Eosinophils # (Auto) 0.1 TH/MM3 Basophils # (Auto) 0.1 TH/MM3 CBC Comment DIFF FINAL Differential Comment Total Creatine Kinase 94 U/L Troponin I LESS THAN 0.02 NG/ML B-Type Natriuretic Peptide 109 PG/ML Urine Color YELLOW Urine Turbidity CLEAR Urine pH 6.0 Urine Specific [place] 1.013 Urine Protein TRACE mg/dL Urine Glucose (UA) NEG mg/dL Urine Ketones NEG mg/dL Urine Occult Blood NEG Urine Nitrite NEG Urine Bilirubin NEG Urine Urobilinogen LESS THAN 2.0 MG/DL Urine Leukocyte Esterase NEG Urine RBC 5 /hpf Urine WBC LESS THAN 1 /hpf Urine Squamous Epithelial 1 /hpf Cells Microscopic Urinalysis Comment CATH-CULT NOT IND Prothrombin Time 11.2 SEC Prothromb Time International 1.0 RATIO Ratio Activated Partial 36.9 SEC Thromboplast Time Fibrinogen 507 mg/dL Lactic Acid Level 2.6 mmol/L Phosphorus Level 3.3 MG/DL Magnesium Level 1.9 MG/DL Total Bilirubin 0.9 MG/DL Direct Bilirubin 0.2 MG/DL Indirect Bilirubin 0.7 MG/DL Aspartate Amino Transf 21 U/L (AST/SGOT) Alanine Aminotransferase 14 U/L (ALT/SGPT) Alkaline Phosphatase 61 U/L Ammonia LESS THAN 10 MCMOL/L Total Protein 6.7 GM/DL Albumin 2.8 GM/DL Amylase Level 63 U/L Lipase 252 U/L Thyroid Stimulating Hormone 0.553 uIU/ML 3rd Gen Blood Gas Puncture Site RT RADIAL Blood Gas Patient Temperature 98.6 Blood Gas HCO3 22 mmol/L Blood Gas Base Excess -1.3 mmol/L Blood Gas Oxygen Saturation 96 % Arterial Blood pH 7.48 Arterial Blood Partial 30 mmHg Pressure CO2 Arterial Blood Partial 106 mmHg Pressure O2 Arterial Blood Oxygen Content 15.7 Vol % Arterial Blood 1.3 % Carboxyhemoglobin Arterial Blood Methemoglobin 1.2 % Blood Gas Hemoglobin 11.6 G/DL Oxygen Delivery Device VENTILATOR Blood Gas Ventilator Setting PRVC/AC Blood Gas Inspired Oxygen 40 % Test 02/20/17 04:02 White Blood Count 13.1 TH/MM3 Red Blood Count 3.39 MIL/MM3 Hemoglobin 10.8 GM/DL Hematocrit 32.1 % Mean Corpuscular Volume 94.9 FL Mean Corpuscular Hemoglobin 31.8 PG Mean Corpuscular Hemoglobin 33.5 % Concent Red Cell Distribution Width 13.9 % Platelet Count 135 TH/MM3 Mean Platelet Volume 8.7 FL Sodium Level 146 MEQ/L Potassium Level 3.5 MEQ/L Chloride Level 110 MEQ/L Carbon Dioxide Level 25.9 MEQ/L Anion Gap 10 MEQ/L Blood Urea Nitrogen 22 MG/DL Creatinine 1.21 MG/DL Estimat Glomerular Filtration 52 ML/MIN Rate Random Glucose 76 MG/DL Calcium Level 8.3 MG/DL Objective Remarks GENERAL: Elderly female lying in bed no distress HEENT: Normocephalic. Atraumatic. Pupils equal, round, reactive, conjugate. Orotracheally intubated NECK: Trachea is midline. There is no JVD. CHEST: Diminished bilateral bases. No wheezes or crackles CARDIOVASCULAR: Regular rate, regular rhythm. Sinus by telemetry ABDOMEN: Soft, nontender, nondistended. No guarding. MUSCULOSKELETAL: Pulses 2+. No peripheral edema. NEUROLOGICAL: Alert awake oriented no focal deficits. Medications and IVs Current Medications Medications (Trade) Dose Ordered Sig/Trista Route Start Time Stop Time Status Last Admin (Peridex 0.12% Liq) 15 ml BID@08,20 MT 02/18/17 08:00 02/19/17 09:31 (D50w (Vial) Inj) 25 ml UNSCH PRN IV PUSH 02/18/17 04:45 Insulin Human Regular 1 1 Q6HR SQ 02/18/17 06:00 Ceftriaxone Sodium 2000 mg/ Sodium Chloride 100 ml @ 200 mls/hr Q24H IV 02/19/17 06:00 02/21/17 05:19 (Zithromax Inj/ NS 250 ml Inj) 250 ml @ 250 mls/hr Q24H IV 02/19/17 05:00 02/21/17 05:17 (Tylenol) 650 mg Q6H PRN PO 02/18/17 04:45 (Zofran Inj) 4 mg Q6H PRN IV 02/18/17 04:45 (Heparin Inj) 5,000 units Q8H SQ 02/18/17 06:00 02/21/17 05:19 Miscellaneous Information 1 Q361D XX 02/18/17 04:45 (Chlorhexidine 2% Cloth) 3 pack Taper DAILY@04 TOP 02/19/17 04:00 02/15/18 03:59 02/21/17 03:45 (Chlorhexidine 2% Cloth) 3 pack UNSCH PRN TOP 02/18/17 04:45 (Leatha-Colace) 1 tab BID PO 02/18/17 09:00 02/19/17 09:31 A/P Assessment and Plan Assessment: 81yF with severe community acquired pneumonia with resultant acute hypoxic respiratory failure. 1. Acute Hypoxic respiratory failure resolved, Extubated 02/19 continue bronchodilator, Mucolytic and incentive spirometry 2. Severe CAP to continue Rocephin and Azithromycin, follow with CXR in am tomorrow. Blood cultures, Legionella and Pneumococcal antigen negatives. 3. Sepsis/Leukocytosis Improved 4. DM II continue sliding scale, diet ADA 2000 cals. 5. Obesity strongly recommended diet and exercise as outpatient. 6. 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 SCDs SQH PT evaluation RT for six minutes walk. seen CXR for today marked improvement from admission. Discharge Planning Expected by tomorrow in am . Ej Horvath MD Feb 21, 2017 12:38 Ej Horvath MD Feb 21, 2017 12:38
[2017-02-21] MEDS: APIXABAN 2.5 MG TABLET PO SCH ×2 (17:16→23:12)
[2017-02-21 18:34] LABS: AUTOMATED NEUTROPHIL # 5.2 TH/MM3 (1.8-7.7); BASOPHIL % 0.5 % (0.0-2.0); EOSINOPHIL # 0.4 TH/MM3 (0-0.4); EOSINOPHIL % 4.5 % (0.0-4.0); HEMO FLAGS DIFF FINAL; LYMPH % 21.2 % (9.0-44.0); LYMPHOCYTE # 1.7 TH/MM3 (1.0-4.8); MEAN CELL VOLUME 93.3 FL (80.0-100.0); MEAN CORPUSCULAR HEMOGLOBIN 32.4 PG (27.0-34.0); MEAN CORPUSCULAR HGB CONC 34.7 % (32.0-36.0); MONO % 9.3 % (0.0-8.0); NEUT % 64.5 % (16.0-70.0); PLATELET COUNT 140 TH/MM3 (150-450); RED BLOOD COUNT 3.32 MIL/MM3 (4.00-5.30); RED CELL DISTRIBUTION WIDTH 13.7 % (11.6-17.2); WHITE BLOOD COUNT 8.1 TH/MM3 (4.0-11.0)
[2017-02-21 18:58] LABS: ANION GAP 7 MEQ/L (5-15); AST (GOT) 13 U/L (15-37); BICARBONATE 26.3 MEQ/L (21.0-32.0); BLOOD UREA NITROGEN 13 MG/DL (7-18); CHLORIDE 111 MEQ/L (98-107); GLOMERULAR FILTRATION RATE 80 ML/MIN (>89); POTASSIUM 3.4 MEQ/L (3.5-5.1); SODIUM (NA) 144 MEQ/L (136-145)
[2017-02-21 19:02] LABS: ALKALINE PHOSPHATASE 62 U/L (45-117); ALT (GPT) 11 U/L (10-53); TOTAL BILIRUBIN ADULT 0.7 MG/DL (0.2-1.0)
[2017-02-22] VITALS (7 sets, daily range): BP systolic 116–135; BP diastolic 53–60; PULSE 59–66; RESP 19–20; TEMP 98.2–98.7; O2SAT 92–95
[2017-02-22] MEDS: CHLORHEXIDINE GLUCONATE 2 % 1 PACK (2 CLOTHS) TOP SCH (04:00)
[2017-02-22] MEDS: RESP: ALBUTEROL 2.5 MG/IPRATROPIUM 0.5 MG NEB (SCH) INH ×2 (04:14→09:19)
[2017-02-22] MEDS: INSULIN NovoLIN REGULAR SUPPLEMENTAL SCALE SQ SCH ×3 (06:00→17:35)
[2017-02-22] MEDS: HEPARIN SODIUM - SQ 10,000 UNITS/ML VIAL SQ SCH ×2 (06:01→14:01)
[2017-02-22] MEDS: cefTRIAXone INJ 2,000 MG in SODIUM CHLORIDE 0.9% INJ 100 ML IV SCH (06:01)
[2017-02-22] MEDS: AZITHROMYCIN INJ 500 MG in SODIUM CHLOR 0.9% 250 ML INJ 250 ML IV SCH (06:01)
[2017-02-22 07:20] LABS: HEMATOCRIT 30.6 % (35.0-46.0); MEAN CELL VOLUME 92.7 FL (80.0-100.0); MEAN CORPUSCULAR HEMOGLOBIN 32.1 PG (27.0-34.0); MEAN CORPUSCULAR HGB CONC 34.6 % (32.0-36.0); PLATELET COUNT 144 TH/MM3 (150-450); RED CELL DISTRIBUTION WIDTH 13.7 % (11.6-17.2); REVIEW FLAG FINAL; WHITE BLOOD COUNT 7.7 TH/MM3 (4.0-11.0)
[2017-02-22 07:46] LABS: BICARBONATE 26.6 MEQ/L (21.0-32.0); POTASSIUM 3.3 MEQ/L (3.5-5.1)
[2017-02-22] MEDS: CHLORHEXIDINE 0.12% (ORAL KIT) 15 ML CUP MT SCH (08:00)
[2017-02-22] MEDS: APIXABAN 2.5 MG TABLET PO SCH (08:40)
[2017-02-22] MEDS: DOCUSATE SODIUM 50 MG/SENNA 8.6 MG TAB PO SCH (08:41)
--- NOTE | 2017-02-22 13:34 | HHI.PR ---
Subjective Remarks disability specialist notes: This is an 81yF with history of diabetes who is here on vacation when she experienced worsening shortness of breath and fever over last few days. she was initially with spo2 60s% on room air. She was placed on BiPAP. She has a leukocytosis and a dense RLL consolidation on CXR. She continued to decline requiring intubation and mechanical ventilation. no further history is obtainable from the patient due to her clinical condition. SUBJ 02/19: Remains intubated sedated. Wakes up easily follows commands. Chest x-ray shows persistent right lower infiltrate, improved on my review. Fio2 40%. There was a slight uptrending of lactic acid 2.6 am. Will repeat in afternoon 02/20: Extubated yesterday tolerating well breathing comfortably. Creatinine is improving white count trending down. PT ordered Hospitalist Notes: 02/21: Seen in her bedroom, stable will get the Physical therapy evaluation and walking test for tomorrow, the patient states she has to continue taking her Eliquis twice a day for life due to valve repair, will continue Eliquis as recommended 2.5 mg for persons 80 years of age or older, also will get Echocardiogram, she wants to go home, and follow with PCP. 02/22: Seen in her bedroom, discussed with fire safety manager patient stable okay to be discharged home, will go home and continue antibiotics at this time she will continue with Azithromycin and will need to follow with PCP before her next flight to evaluate if the patient is able to get into the plane, six minute walk test before discharge. No nausea, vomit or diarrhea. Objective Vital Signs Date Time Temp Pulse Resp B/P Pulse Ox O2 Delivery O2 Flow Rate FiO2 02/22/17 12:04 98.7 59 19 135/60 94 02/22/17 09:34 92 Nasal Cannula 2.00 02/22/17 08:04 98.2 65 20 135/60 93 02/22/17 04:00 98.4 63 20 116/53 02/22/17 04:00 Nasal Cannula 2.00 02/22/17 00:00 Nasal Cannula 2.00 02/22/17 00:00 98.5 66 20 120/60 95 02/21/17 20:32 55 02/21/17 20:28 94 Nasal Cannula 2.00 02/21/17 20:00 Nasal Cannula 2.00 02/21/17 20:00 98.7 65 20 118/58 94 02/21/17 16:00 97.9 60 20 135/65 95 I/O 02/21/17 02/21/17 02/21/17 02/22/17 02/22/17 02/22/17 07:00 15:00 23:00 07:00 15:00 23:00 Intake Total 450 ml 240 ml 480 ml 350 ml Balance 450 ml 240 ml 480 ml 350 ml Intake Oral 100 ml 240 ml 480 ml 0 ml IV Total 350 ml 350 ml # Voids 1 1 1 1 # Bowel Movements 0 1 1 Result Diagram: 02/22/17 0602/22/17 06 Imaging Last Impressions Chest X-Ray 02/21/17 06 Signed Impressions: Service Date/Time: Tuesday, February 21, 2017 05:04 - CONCLUSION: 1. Slightly improved right basilar infiltrates. Jeb Lang MD Procedures Endotracheal Intubation and Extubation Other Results Laboratory Tests Test 02/18/17 02/18/17 02/19/17 02/19/17 04:27 05:08 05:03 05:42 Total Creatine Kinase 94 U/L Troponin I LESS THAN 0.02 NG/ML B-Type Natriuretic Peptide 109 PG/ML Urine Color YELLOW Urine Turbidity CLEAR Urine pH 6.0 Urine Specific [place] 1.013 Urine Protein TRACE mg/dL Urine Glucose (UA) NEG mg/dL Urine Ketones NEG mg/dL Urine Occult Blood NEG Urine Nitrite NEG Urine Bilirubin NEG Urine Urobilinogen LESS THAN 2.0 MG/DL Urine Leukocyte Esterase NEG Urine RBC 5 /hpf Urine WBC LESS THAN 1 /hpf Urine Squamous Epithelial 1 /hpf Cells Microscopic Urinalysis Comment CATH-CULT NOT IND Prothrombin Time 11.2 SEC Prothromb Time International 1.0 RATIO Ratio Activated Partial 36.9 SEC Thromboplast Time Fibrinogen 507 mg/dL Lactic Acid Level 2.6 mmol/L Phosphorus Level 3.3 MG/DL Magnesium Level 1.9 MG/DL Direct Bilirubin 0.2 MG/DL Indirect Bilirubin 0.7 MG/DL Ammonia LESS THAN 10 MCMOL/L Amylase Level 63 U/L Lipase 252 U/L Thyroid Stimulating Hormone 0.553 uIU/ML 3rd Gen Blood Gas Puncture Site RT RADIAL Blood Gas Patient Temperature 98.6 Blood Gas HCO3 22 mmol/L Blood Gas Base Excess -1.3 mmol/L Blood Gas Oxygen Saturation 96 % Arterial Blood pH 7.48 Arterial Blood Partial 30 mmHg Pressure CO2 Arterial Blood Partial 106 mmHg Pressure O2 Arterial Blood Oxygen Content 15.7 Vol % Arterial Blood 1.3 % Carboxyhemoglobin Arterial Blood Methemoglobin 1.2 % Blood Gas Hemoglobin 11.6 G/DL Oxygen Delivery Device VENTILATOR Blood Gas Ventilator Setting PRVC/AC Blood Gas Inspired Oxygen 40 % Test 02/21/17 02/22/17 17:22 06:20 Neutrophils (%) (Auto) 64.5 % Lymphocytes (%) (Auto) 21.2 % Monocytes (%) (Auto) 9.3 % Eosinophils (%) (Auto) 4.5 % Basophils (%) (Auto) 0.5 % Neutrophils # (Auto) 5.2 TH/MM3 Lymphocytes # (Auto) 1.7 TH/MM3 Monocytes # (Auto) 0.8 TH/MM3 Eosinophils # (Auto) 0.4 TH/MM3 Basophils # (Auto) 0.0 TH/MM3 CBC Comment DIFF FINAL Differential Comment Total Bilirubin 0.7 MG/DL Aspartate Amino Transf 13 U/L (AST/SGOT) Alanine Aminotransferase 11 U/L (ALT/SGPT) Alkaline Phosphatase 62 U/L Total Protein 6.2 GM/DL Albumin 2.6 GM/DL White Blood Count 7.7 TH/MM3 Red Blood Count 3.30 MIL/MM3 Hemoglobin 10.6 GM/DL Hematocrit 30.6 % Mean Corpuscular Volume 92.7 FL Mean Corpuscular Hemoglobin 32.1 PG Mean Corpuscular Hemoglobin 34.6 % Concent Red Cell Distribution Width 13.7 % Platelet Count 144 TH/MM3 Mean Platelet Volume 8.0 FL Sodium Level 147 MEQ/L Potassium Level 3.3 MEQ/L Chloride Level 112 MEQ/L Carbon Dioxide Level 26.6 MEQ/L Anion Gap 8 MEQ/L Blood Urea Nitrogen 12 MG/DL Creatinine 0.85 MG/DL Estimat Glomerular Filtration 78 ML/MIN Rate Random Glucose 76 MG/DL Calcium Level 8.1 MG/DL Objective Remarks GENERAL: Elderly female lying in bed no distress HEENT: Normocephalic. Atraumatic. Pupils equal, round, reactive, conjugate. Orotracheally intubated NECK: Trachea is midline. There is no JVD. CHEST: Diminished bilateral bases. No wheezes or crackles CARDIOVASCULAR: Regular rate, regular rhythm. Sinus by telemetry ABDOMEN: Soft, nontender, nondistended. No guarding. MUSCULOSKELETAL: Pulses 2+. No peripheral edema. NEUROLOGICAL: Alert awake oriented no focal deficits. Medications and IVs Current Medications Medications (Trade) Dose Ordered Sig/Trista Route Start Time Stop Time Status Last Admin (Peridex 0.12% Liq) 15 ml BID@08,20 MT 02/18/17 08:00 02/19/17 09:31 (D50w (Vial) Inj) 25 ml UNSCH PRN IV PUSH 02/18/17 04:45 Insulin Human Regular 1 1 Q6HR SQ 02/18/17 06:00 Ceftriaxone Sodium 2000 mg/ Sodium Chloride 100 ml @ 200 mls/hr Q24H IV 02/19/17 06:00 02/22/17 06:01 (Zithromax Inj/ NS 250 ml Inj) 250 ml @ 250 mls/hr Q24H IV 02/19/17 05:00 02/22/17 06:01 (Tylenol) 650 mg Q6H PRN PO 02/18/17 04:45 (Zofran Inj) 4 mg Q6H PRN IV 02/18/17 04:45 (Heparin Inj) 5,000 units Q8H SQ 02/18/17 06:00 02/22/17 06:01 Miscellaneous Information 1 Q361D XX 02/18/17 04:45 (Chlorhexidine 2% Cloth) 3 pack Taper DAILY@04 TOP 02/19/17 04:00 02/15/18 03:59 02/22/17 04:00 (Chlorhexidine 2% Cloth) 3 pack UNSCH PRN TOP 02/18/17 04:45 (Leatha-Colace) 1 tab BID PO 02/18/17 09:00 02/19/17 09:31 (Eliquis) 2.5 mg BID PO 02/21/17 14:45 02/22/17 08:40 A/P Assessment and Plan Assessment: 81yF with severe community acquired pneumonia with resultant acute hypoxic respiratory failure. 1. Acute Hypoxic respiratory failure resolved, Extubated 02/19 continue bronchodilator, Mucolytic and incentive spirometry at this time she is improving her Pneumonia, she will continue Azithromycin at home and will follow with PCP for the possibility to fly back home, at this time will have Six minute walk for possible need for Oxygen at discharge. 2. Severe CAP to continue Rocephin and Azithromycin, follow with CXR in am tomorrow. Blood cultures, Legionella and Pneumococcal antigen negatives. continue Azithromycin at home. 3. Sepsis/Leukocytosis Improved 4. DM II continue sliding scale, diet ADA 2000 cals. 5. Obesity strongly recommended diet and exercise as outpatient. 6. 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 7. Obesity strongly recommended diet and exercise as outpatient. 8. Hypokalemia replaced SCDs SQH PT evaluation RT for six minutes walk. seen CXR for today marked improvement from admission. Discharge Planning Discharge home with [facility] also may need oxygen Ej Horvath MD Feb 22, 2017 13:34
[2017-02-22] MEDS ORDERED: POTASSIUM CHLORIDE 20 MEQ CONTROLLED RELEASE TAB PO ONE ×2 (13:45→16:00)
[2017-02-22] MEDS ORDERED: APIX2.5T PO (14:18)
[2017-02-22] MEDS ORDERED: AZIT500T2 PO (14:18)
--- NOTE | 2017-02-22 14:19 | HHI.FF ---
Face to Face Verification Diagnosis: (1) Acute respiratory failure (2) Sepsis (3) Pneumonia (4) Acute kidney injury Physical Therapy Order: Evaluate and Treat, Improve ambulation, Strength and gait training Home Health Nursing Order: Medical education Signs/symptoms of disease process Oxygen administration education Medication education-adverse effect Nursing assessment with vital signs I have seen patient Radhika Us on 02/22/17. My clinical findings support the need for the requested home health care services because: Ltd mobility - disease progression Deconditioned w/ increased weakness I certify that my clinical findings support that this patient is homebound because: Unsteady gait/balance Unsafe to leave home unassisted Ej Horvath MD Feb 22, 2017 14:19
--- NOTE | 2017-02-22 14:21 | HHI.DS ---
Discharge Summary Admission Date Feb 18, 2017 at 05:13 Discharge Date: Feb 22, 2017 Admitting Diagnosis (1) Acute respiratory failure ICD Code: J96.00 Diagnosis: Principal (2) Pneumonia ICD Code: J18.9 Diagnosis: Principal (3) Sepsis ICD Code: A41.9 Diagnosis: Principal (4) Acute kidney injury ICD Code: N17.9 Diagnosis: Principal Procedures Endotracheal intubation and Extubation Brief History - From Admission This is an 81yF with history of diabetes who is here on vacation when she experienced worsening shortness of breath and fever over last few days. she was initially with spo2 60s% on room air. She was placed on BiPAP. She has a leukocytosis and a dense RLL consolidation on CXR. She continued to decline requiring intubation and mechanical ventilation. no further history is obtainable from the patient due to her clinical condition. CBC/BMP: 02/22/17 0620 02/22/17 0620 Significant Findings Laboratory Tests Test 02/20/17 02/21/17 02/22/17 04:02 17:22 06:20 White Blood Count 13.1 TH/MM3 (4.0-11.0) Red Blood Count 3.39 MIL/MM3 3.32 MIL/MM3 3.30 MIL/MM3 (4.00-5.30) (4.00-5.30) (4.00-5.30) Hemoglobin 10.8 GM/DL 10.7 GM/DL 10.6 GM/DL (11.6-15.3) (11.6-15.3) (11.6-15.3) Hematocrit 32.1 % 31.0 % 30.6 % (35.0-46.0) (35.0-46.0) (35.0-46.0) Platelet Count 135 TH/MM3 140 TH/MM3 144 TH/MM3 (150-450) (150-450) (150-450) Sodium Level 146 MEQ/L 147 MEQ/L (136-145) (136-145) Chloride Level 110 MEQ/L 111 MEQ/L 112 MEQ/L (98-107) (98-107) (98-107) Blood Urea Nitrogen 22 MG/DL (7-18) Creatinine 1.21 MG/DL (0.50-1.00) Estimat Glomerular Filtration 52 ML/MIN (>89) 80 ML/MIN (>89) 78 ML/MIN (>89) Rate Calcium Level 8.3 MG/DL 7.8 MG/DL 8.1 MG/DL (8.5-10.1) (8.5-10.1) (8.5-10.1) Monocytes (%) (Auto) 9.3 % (0.0-8.0) Eosinophils (%) (Auto) 4.5 % (0.0-4.0) Potassium Level 3.4 MEQ/L 3.3 MEQ/L (3.5-5.1) (3.5-5.1) Aspartate Amino Transf 13 U/L (15-37) (AST/SGOT) Total Protein 6.2 GM/DL (6.4-8.2) Albumin 2.6 GM/DL (3.4-5.0) Imaging Last Impressions Chest X-Ray 02/21/17 0600 Signed Impressions: Service Date/Time: Tuesday, February 21, 2017 05:04 - CONCLUSION: 1. Slightly improved right basilar infiltrates. Jeb Lang MD PE at Discharge GENERAL: Elderly female lying in bed no distress HEENT: Normocephalic. Atraumatic. Pupils equal, round, reactive, conjugate. Orotracheally intubated NECK: Trachea is midline. There is no JVD. CHEST: Diminished bilateral bases. No wheezes or crackles CARDIOVASCULAR: Regular rate, regular rhythm. Sinus by telemetry ABDOMEN: Soft, nontender, nondistended. No guarding. MUSCULOSKELETAL: Pulses 2+. No peripheral edema. NEUROLOGICAL: Alert awake oriented no focal deficits. Transfer Summary This is an 81yF with history of diabetes who is here on vacation when she experienced worsening shortness of breath and fever over last few days. she was initially with spo2 60s% on room air. She was placed on BiPAP. She has a leukocytosis and a dense RLL consolidation on CXR. She continued to decline requiring intubation and mechanical ventilation. no further history is obtainable from the patient due to her clinical condition. SUBJ 02/19: Remains intubated sedated. Wakes up easily follows commands. Chest x-ray shows persistent right lower infiltrate, improved on my review. Fio2 40%. There was a slight uptrending of lactic acid 2.6 am. Will repeat in afternoon 02/20: Extubated yesterday tolerating well breathing comfortably. Creatinine is improving white count trending down. PT ordered Hospital Course revenue cycle specialist notes: This is an 81yF with history of diabetes who is here on vacation when she experienced worsening shortness of breath and fever over last few days. she was initially with spo2 60s% on room air. She was placed on BiPAP. She has a leukocytosis and a dense RLL consolidation on CXR. She continued to decline requiring intubation and mechanical ventilation. no further history is obtainable from the patient due to her clinical condition. SUBJ 02/19: Remains intubated sedated. Wakes up easily follows commands. Chest x-ray shows persistent right lower infiltrate, improved on my review. Fio2 40%. There was a slight uptrending of lactic acid 2.6 am. Will repeat in afternoon 02/20: Extubated yesterday tolerating well breathing comfortably. Creatinine is improving white count trending down. PT ordered Hospitalist Notes: 02/21: Seen in her bedroom, stable will get the Physical therapy evaluation and walking test for tomorrow, the patient states she has to continue taking her Eliquis twice a day for life due to valve repair, will continue Eliquis as recommended 2.5 mg for persons 80 years of age or older, also will get Echocardiogram, she wants to go home, and follow with PCP. 02/22: Seen in her bedroom, discussed with lunch counter manager patient stable okay to be discharged home, will go home and continue antibiotics at this time she will continue with Azithromycin and will need to follow with PCP before her next flight to evaluate if the patient is able to get into the plane, six minute walk test before discharge. No nausea, vomit or diarrhea. Assessment and Plan Assessment: 81yF with severe community acquired pneumonia with resultant acute hypoxic respiratory failure. 1. Acute Hypoxic respiratory failure resolved, Extubated 02/19 continue bronchodilator, Mucolytic and incentive spirometry at this time she is improving her Pneumonia, she will continue Azithromycin at home and will follow with PCP for the possibility to fly back home, at this time will have Six minute walk for possible need for Oxygen at discharge. 2. Severe CAP to continue Rocephin and Azithromycin, follow with CXR in am tomorrow. Blood cultures, Legionella and Pneumococcal antigen negatives. continue Azithromycin at home. 3. Sepsis/Leukocytosis Improved 4. DM II continue sliding scale, diet ADA 2000 cals. 5. Obesity strongly recommended diet and exercise as outpatient. 6. 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 7. Obesity strongly recommended diet and exercise as outpatient. 8. Hypokalemia replaced SCDs [facility] PT evaluation RT for six minutes walk. seen CXR for today marked improvement from admission. Discharge Planning Discharge home with [facility] also may need oxygen Pt Condition on Discharge: Stable Discharge Disposition: Disch w/ Home Health Serv Discharge Time: > 30 minutes Discharge Instructions DIET: Follow Instructions for: Heart Healthy Diet Activities you can perform: Regular-No Restrictions Ej Horvath MD Feb 22, 2017 14:21
[2017-02-22] MEDS ORDERED: OXYGENDME NAS.CANULA ×2 (14:27→16:15)
== END 2017-02-22 19:12 | disposition home or self-care (01) | DRG 871 ==
LOC: NEPE 04:22 → NEDH 05:13 → HIMW 15:45 → N04B 02-20 12:39
PROVIDERS: ADMIT Internal Medicine; ATTEND Internal Medicine
PROC: 0BH17EZ Insertion of Endotracheal Airway into Trachea, Via Natural or Artificial Opening (ICD-10-PCS; principal; 2017-02-18)
PROC: 5A1935Z Respiratory Ventilation, Less than 24 Consecutive Hours (ICD-10-PCS; 2017-02-18)
DX: A41.9 Sepsis, unspecified organism (principal); J18.9 Pneumonia, unspecified organism; J96.01 Acute respiratory failure with hypoxia; N17.9 Acute kidney failure, unspecified; E11.9 Type 2 diabetes mellitus without complications; E87.6 Hypokalemia
CPT/HCPCS: 31500; 36600; 51702; 71010; 80048; 80053; 80076; 81001; 82140; 82150; 82550; 82805; 82948; 83605; 83690; 83735; 83880; 84100; 84443; 84484; 85025; 85027; 85384; 85610; 85730; 87040; 87449; 93005; 94002; 94003; 94150; 94640; 94664; 94667; 94668; J0456; J0696; J1644; J1940; J7030; J7050